=== PATIENT | female | born 1945 | race Caucasian/White ===

== ENCOUNTER 2017-12-15 11:59 | Day surgery (SDC) | payer MEDICARE ==
[~2017-12-15] VITALS: Ht 154.9 cm; Wt 92.5 kg
[~2017-12-15 11:59] MED LIST: ADVAIR 250-501 EACH INH; BAYER BACK & B1 EACH PO; CEFADROXIL500 MG PO; CIPROFLOXACIN500 MG PO; FUROSEMIDE20 MG PO; FUROSEMIDE40 MG PO; IPRAT-ALBUT 0.5-3 ML INH; LEVOTHYROXINE125 MCG PO; LOVENOX30 MG SUB-Q; MEDI-PATCH WIT1 EACH TOP; METRONIDAZOLE500 MG PO; MULTI VITAMIN1 EACH PO; NASACORT10.8 ML NAS; OMEPRAZOLE20 MG PO; OXYCODONE HCL5 MG PO; PROBIOTIC1 EAC1 PO; SENNA S TABLET1 EA PO; SYNTHROID112 MCG PO; VENTOLIN HFA18 GM INH; VITAMIN B-121000 MCG PO; VITAMIN B-6100 MG PO; VITAMIN C500 MG PO; VITAMIN D31000 UNI1 PO; WARFARIN SODIUM1 MG PO; WARFARIN SODIUM5 MG PO; XARELTO20 MG PO
--- NOTE | 2017-12-15 14:17 | NUR ---
12/15/17 1417 Tara Arboleda 1408 PT ARRIVED VERY DROWSY AND ASLEEP OFF AND ON. 1415 O2 REMOVED, O2 SAT 100%, PT DENIES PAIN AND NAUSEA. PT SITTING IN SEMI FOWLERS.
--- NOTE | 2017-12-16 09:20 | OR ---
[facility] [address] [place], [place] [address] Signed DATE OF OPERATION: 12/15/2017 SURGEON: Lalita Esqueda MD PREOPERATIVE DIAGNOSIS: Right upper abdominal pain with CT scan finding of thickened cecum. POSTOPERATIVE DIAGNOSES: 1. Normal cecum. 2. Small polyp, proximal ascending colon. 3. Sigmoid diverticulosis. PROCEDURE: Total colonoscopy to cecum with cold morcellation polypectomy x1 and biopsy of cecum. ANESTHESIA: Intravenous sedation, fentanyl 150 mcg, Versed 6 mg. PREOPERATIVE ANTIBIOTICS: Flagyl and Ancef. INDICATION: This 72-year-old white woman is a patient of Dr. 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 She has had right upper abdominal pain and a CT scan of the abdomen was performed, which showed a thickened cecum. She has undergone colonoscopy about [address] Pierson in the [facility], which was normal except for diverticulosis. Given her thickened cecum, colon evaluation has been recommended. I have additionally initiated a biliary workup including ultrasound and possibly CCK-HIDA test. The patient is on Xarelto chronically and has been withdrawn for the past 48 hours anticipating colonoscopy. The risks of bleeding, infection, perforation, and so forth related to colonoscopy was reviewed in detail. Additionally reviewed was a small, but possible risk of deep venous thrombosis being off anticoagulant. Consideration has been made for bridge therapy, but it deemed inadvisable overall. She has implanted joint from the past and preoperative antibiotic, Flagyl and Ancef were given. FINDINGS: The prep was good. Complete colonoscopy was undertaken to the cecum. There was no sign of abnormality of the cecum itself. Certainly, no thickening or neoplasm. Biopsies Electronically Signed By: LALITA ESQUEDA MD 12/16/17 0920 PATIENT NAME: AMBER PARTIDA OPERATIVE REPORT DATE OF : 41 REPORT #: [id number] PHYSICIAN: LALITA ESQUEDA MD PCP: SEGUNDO ADAMSON MD REPORT IS CONFIDENTIAL AND NOT TO BE RELEASED WITHOUT AUTHORIZATION [facility] [address] [place], [place] [address] Signed were taken to further validate this endoscopic appearance. There was a small sessile polyp of the proximal ascending colon, which was excised with cold morcellation technique. The remaining colon was normal except for diverticulosis of the sigmoid and left colon, which was rather extensive. Note is made that future endoscopic evaluation should be undertaken with propofol due to tolerance of the patient related to her ongoing medications. DESCRIPTION OF PROCEDURE: The patient was brought to the endoscopy suite and placed in lateral decubitus position, given intravenous sedation to the point of slurred speech and nystagmus. Digital rectal examination was normal. An Olympus video colonoscope was passed in the rectum and manipulated into the sigmoid, where numerous diverticula were seen. With various manipulations of the usual kind, the scope was advanced beyond this ultimately to the hepatic flexure. Passage beyond the hepatic flexure was a bit more challenging, as regard to the patient's comfort and required additional sedation. The scope ultimately was advanced to the cecum. The cecum was well evaluated and clearly irrigated and found to be normal. There was some thickening of the ileocecal valve, but it was not pathologic. Biopsies were taken of that and the cecum. The scope was withdrawn and in the proximal ascending colon, there was a small flat polyp was excised with cold morcellation technique. Further withdrawal of the scope showed no other abnormality until diverticulosis of the left side in the sigmoid. Retroflexed view of the rectum was normal. Scope was removed and the patient was taken to the recovery room in good condition. CONCLUDING DIAGNOSES: 1. No evidence of worrisome cecum despite CT scan findings. 2. Small polyp of ascending colon excised. 3. Sigmoid and left-sided diverticulosis. PLAN: I have asked her to restart Xarelto in 48 hours given the biopsies that were obtained. It is noted that her full anticoagulant effect Xarelto will be enjoyed within 2 hours of its ingestion. She should be very ambulatory and avoid precipitating causes for venous stasis. She will follow up through with the ultrasound as planned and see me in the office after biliary workup is more complete. Electronically Signed By: LALITA ESQUEDA MD 12/16/17 0920 PATIENT NAME: AMBER PARTIDA OPERATIVE REPORT DATE OF : 41 REPORT #: [id number] PHYSICIAN: LALITA ESQUEDA MD PCP: SEGUNDO ADAMSON MD REPORT IS CONFIDENTIAL AND NOT TO BE RELEASED WITHOUT AUTHORIZATION [facility] [address] [place], [place] [address] Signed Lalita Esqueda MD JM/MODL /[id number] cc: Segundo Adamson MD Copies: SEGUNDO ADAMSON MD ~ Electronically Signed By: LALITA ESQUEDA MD 12/16/17 0920 PATIENT NAME: AMBER PARTIDA OPERATIVE REPORT DATE OF : 41 REPORT #: [id number] PHYSICIAN: LALITA ESQUEDA MD PCP: SEGUNDO ADAMSON MD REPORT IS CONFIDENTIAL AND NOT TO BE RELEASED WITHOUT AUTHORIZATION
[2018-01-15] MEDS ORDERED: LOVENOX40 MG/0.4 SUB-Q (10:42)
== END 2017-12-15 15:03 | disposition home or self-care (01) ==
LOC: OPS 11:59 → DS 13:00 → OPS 15:03
PROVIDERS: Surgery
PROC: 0DBH8ZX Excision of Cecum, Via Natural or Artificial Opening Endoscopic, Diagnostic (ICD-10-PCS; principal; 2017-12-15 13:00)
DX: K63.5 Polyp of colon (principal); K57.30 Diverticulosis of large intestine without perforation or abscess without bleeding; G47.30 Sleep apnea, unspecified; I26.99 Other pulmonary embolism without acute cor pulmonale; Z88.5 Allergy status to narcotic agent; Z88.8 Allergy status to other drugs, medicaments and biological substances; Z90.49 Acquired absence of other specified parts of digestive tract; Z90.89 Acquired absence of other organs; Z98.51 Tubal ligation status; Z96.659 Presence of unspecified artificial knee joint; Z96.642 Presence of left artificial hip joint; Z98.890 Other specified postprocedural states; Z79.01 Long term (current) use of anticoagulants; Z99.89 Dependence on other enabling machines and devices; Z80.0 Family history of malignant neoplasm of digestive organs
CPT/HCPCS: 88305; 99153; G0500; J0690; J2250; J3010; J7120

== ENCOUNTER 2018-01-20 07:00 | Day surgery (SDC) | payer MEDICARE ==
[~2018-01-20] VITALS: Ht 154.9 cm; Wt 91.6 kg
[~2018-01-20 07:00] MED LIST changes: +LOVENOX40 MG/0.4 SUB-Q
--- NOTE | 2018-01-20 11:10 | NUR ---
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 RESP EVEN AND UNLABORED ON 6L VIA MASK. VSS. 1103 PAIN MEDICATION GIVEN PER EMAR. 1109 PT CONTINUES TO MOAN AND ASLEEP OFF AND ON. PT REORIENTED TO PACU
[2018-01-20] MEDS ORDERED: IBUPROFEN600 MG PO (11:25)
[2018-01-20] MEDS ORDERED: OXYCODON-ACETA1 EAC2 PO (11:25)
--- NOTE | 2018-01-20 11:57 | NUR ---
DAGOBERTO AND ICED WATER GIVEN. FAMILY @ BS. CALL LIGHT W/IN REACH.
--- NOTE | 2018-01-20 13:11 | NUR ---
PT UP TO BR W/RN AND FAMILY ASSIST. PT AMBULATES W/A LIMP WHICH IS BASELINE FOR THE PATIENT. PT VOIDS 600 ML CLOUDY YELLOW URINE AND AMBULATES BACK TO BED.
--- NOTE | 2018-01-20 13:58 | NUR ---
COFFEE GIVEN. PT LAYING QUIETLY IN BED W/FAMILY @ BS. PT DENIES ADD'L NEEDS @ THIS TIME.
--- NOTE | 2018-01-20 15:04 | NUR ---
LE 1445: PT UP TO BR W/FAMILY STANDBY. PT AMBULATES WELL, REPORTS SUCCESSFUL VOID AND REQ DC HOME. VERBAL DC INSTRUCTIONS ARE GIVEN IN PRESENCE OF FAMILY AND ALL VERBALIZE UNDERSTANDING. PT DRESSES SELF IN PRESENCE OF FAMILY AND TOLERATES THAT WELL. PT TRANSFERS HERSELF TO WC AND PERSONAL VEHICLE AND TOLERATES THAT WELL.
--- NOTE | 2018-01-20 20:46 | OR ---
[facility] [address] [place], [place] [address] Signed DATE OF OPERATION: 01/20/2018 SURGEON: Lalita Esqueda MD PREOPERATIVE DIAGNOSES: 1. Acalculous cholecystitis. 2. Obesity. 3. 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 PROCEDURES: 1. Laparoscopic cholecystectomy with intraoperative cholangiogram. 2. Surgeon-directed fluoroscopy. ANESTHESIA: General endotracheal, Selena Lemon CRNA. INDICATION: This 72-year-old white woman is a patient of Dr. Adamson in [place], [place]. She was seen by me originally having right-sided abdominal pain and a CT scan, which showed a thickened cecal wall. She has a history of recurrent pulmonary emboli and deep venous thrombosis in the past and is chronically anticoagulated with a thrombin inhibitor. Colonoscopy that was performed showed no evidence of abnormality of the cecum. Further consideration of her pain of the right abdomen was suggestive of biliary disease and a gallbladder ultrasound was performed, which showed no evidence of gallstones and subsequent CCK-HIDA test was performed, which showed essentially no ejection fraction from the gallbladder. On the basis of her right-sided abdominal pain and findings highly suggestive of acalculous cholecystitis, she is admitted at this time to undergo cholecystectomy. She has been stopped as regard her thrombin inhibitor and a bridge therapy protocol ([facility] protocol) with Lovenox has been initiated. The patient and her family understand the risks of operation including, but not limited to bleeding, infection, bile duct injury, need for open procedure, failure of operation to control her symptoms, and of course recurrent thromboembolic phenomenon despite efforts to avoid it. Understanding this, she wished to proceed. FINDINGS: She is quite obese. Entry to the abdomen was not excessively difficult however. The Electronically Signed By: LALITA ESQUEDA MD 01/20/18 2046 PATIENT NAME: AMBER PARTIDA OPERATIVE REPORT DATE OF : 41 REPORT #: [id number] PHYSICIAN: LALITA ESQUEDA MD PCP: SEGUNDO ADAMSON MD REPORT IS CONFIDENTIAL AND NOT TO BE RELEASED WITHOUT AUTHORIZATION [facility] [address] [place], [place] [address] Signed gallbladder had mild fatty infiltration, but no sign of cirrhotic changes. The gallbladder itself was chronically inflamed. Once excised, it was noted to have profound cholesterolosis of mucosa consistent with strawberry gallbladder. Intraoperative cholangiogram was normal. There was no untoward bleeding. Samanta was used nevertheless, anticipating relatively prompt return to her thrombin inhibitor. Lovenox had been used as medication for her bridge therapy approach. DESCRIPTION OF PROCEDURE: The patient was brought to the operating room, given a general endotracheal anesthetic. Preoperative antibiotics had been administered and sequential compression device stockings used. Heparin and Lovenox were not administered today as per the protocol. The abdomen was prepared with chlorhexidine solution and draped sterilely. A supraumbilical incision was made considering prior lower abdominal midline incision. The abdomen was entered without problem. She had extremely thin fascia, but no sign of hernia. Pneumoperitoneum was achieved at the level of 14 mmHg of carbon dioxide gas after the Michelle cannula was placed and secured with sutures. Intraabdominal inspection was then undertaken showing no sign of ascites or carcinomatosis. The gallbladder showed chronic inflammatory change. The liver had mild fatty infiltration. Three additional trocars were placed in usual configuration in the subxiphoid, right midclavicular, and right anterior axillary line. The gallbladder was then elevated cephalad and retracted laterally. A fatty peritoneal lining was noted. Using blunt and electrocautery dissection, the triangle of Calot was dissected free ultimately identifying well the cystic duct and cystic arterial branches. A clip was applied across the gallbladder cystic duct junction and clips applied across the cystic artery. A transverse choledochotomy was made in the cystic duct and egress of somewhat turbid bile noted upon retrograde milking of the cystic duct. Using an Wallop type cholangiocatheter system, intraoperative cholangiography was undertaken showing free flow of contrast in the biliary tree with prompt emptying into the duodenum. Retrograde filling was normal. There was no sign of abnormality of any sort. The catheter was removed and the cystic duct was triply clipped and divided the gallbladder dissected free in a retrograde fashion using electrocautery. Clips were used as necessary for small arterial and venous branches. The gallbladder was placed in an endobag and extracted through the supraumbilical port site without problem. It was opened on the back table by the circulating nurse and found to have profound cholesterolosis consistent with "strawberry gallbladder." Irrigation was undertaken in the subhepatic space. There was no sign of bile leak or bleeding. However, given the plan for prompt return to a thrombin inhibitor, Samanta was applied to the subhepatic space and pericystic duct area as well. The trocars were removed under direct visualization showing no sign of bleeding. The supraumbilical fascial incision was reapproximated with interrupted 0 Vicryl suture. All wounds were Electronically Signed By: LALITA ESQUEDA MD 01/20/18 1808 PATIENT NAME: AMBER PARTIDA OPERATIVE REPORT DATE OF : 41 REPORT #: [id number] PHYSICIAN: LALITA ESQUEDA MD PCP: SEGUNDO ADAMSON MD REPORT IS CONFIDENTIAL AND NOT TO BE RELEASED WITHOUT AUTHORIZATION [facility] [address] [address] Signed copiously irrigated with saline solution. Skin closed with interrupted 3-0 Vicryl. Steri-Strips were applied. The patient was ultimately extubated and transferred to recovery room in good condition having suffered no complication. Sponge, needle, and instruments counts were reported as correct x3. MD LEANDER Arevalo/JACINTOL /[id number] cc: Segundo Adamson MD Copies: SEGUNDO ADAMSON MD ~ Electronically Signed By: LALITA ESQUEDA MD 01/20/18 2046 PATIENT NAME: AMBER PARTIDA OPERATIVE REPORT DATE OF : 41 REPORT #: [id number] PHYSICIAN: LALITA ESQUEDA MD PCP: SEGUNDO ADAMSON MD REPORT IS CONFIDENTIAL AND NOT TO BE RELEASED WITHOUT AUTHORIZATION
== END 2018-01-20 14:55 | disposition home or self-care (01) ==
LOC: DS 07:00
PROVIDERS: Surgery
PROC: BF13YZZ Fluoroscopy of Gallbladder and Bile Ducts using Other Contrast (ICD-10-PCS; 2018-01-20)
PROC: 0FT44ZZ Resection of Gallbladder, Percutaneous Endoscopic Approach (ICD-10-PCS; principal; 2018-01-20 08:45)
DX: K81.1 Chronic cholecystitis (principal); K76.0 Fatty (change of) liver, not elsewhere classified; E66.9 Obesity, unspecified; I26.99 Other pulmonary embolism without acute cor pulmonale; I82.409 Acute embolism and thrombosis of unspecified deep veins of unspecified lower extremity; K82.8 Other specified diseases of gallbladder; K21.9 Gastro-esophageal reflux disease without esophagitis; M54.5 Low back pain; G47.30 Sleep apnea, unspecified; J45.909 Unspecified asthma, uncomplicated; Z99.89 Dependence on other enabling machines and devices; Z68.38 Body mass index [BMI] 38.0-38.9, adult; Z88.5 Allergy status to narcotic agent; Z88.8 Allergy status to other drugs, medicaments and biological substances; Z79.01 Long term (current) use of anticoagulants; Z80.0 Family history of malignant neoplasm of digestive organs; Z79.899 Other long term (current) drug therapy
CPT/HCPCS: 00790; 74300; 88304; J0330; J0360; J0690; J1100; J1170; J1200; J2250; J2270; J2405; J2704; J3010; J7120; Q9967